=== PATIENT | male | born 1955 | race Caucasian/White ===

== ENCOUNTER 2023-01-03 09:23 | Outpatient (CLI) | payer MEDICARE | END 2023-01-03 09:24 | disposition home or self-care (01) | LOC: NAV RAD 09:23 | PROVIDERS: ATTEND Nurse Practitioner Family | DX: M51.34 Other intervertebral disc degeneration, thoracic region (principal); M25.561 Pain in right knee; M25.562 Pain in left knee; M25.78 Osteophyte, vertebrae; M53.84 Other specified dorsopathies, thoracic region; M25.861 Other specified joint disorders, right knee; M93.262 Osteochondritis dissecans, left knee; M17.0 Bilateral primary osteoarthritis of knee; M47.816 Spondylosis without myelopathy or radiculopathy, lumbar region; I70.8 Atherosclerosis of other arteries | CPT/HCPCS: 72072; 72100 ==

== ENCOUNTER 2023-11-21 14:19 | Emergency (ER) | payer MEDICARE ==
[2023-11-21 15:51] LABS: Anion Gap 14 mmol/L (10-20); BUN (Urea Nitrogen) 34 mg/dL (8.4-25.7); Calc. Creatinine Clearance 0 mL/min (70-130); Calcium 8.6 mg/dL (7.8-10.44); Carbon Dioxide 18 mmol/L (23-31); Chloride 108 mmol/L (98-107); Estimated GFR 28; Glucose 186 mg/dL (80-115); Potassium 5.2 mmol/L (3.5-5.1); Sodium 135 mmol/L (136-145)
== END 2023-11-21 16:30 | disposition home or self-care (01) ==
LOC: NAV ERS 14:19
DX: E87.5 Hyperkalemia (principal); N28.9 Disorder of kidney and ureter, unspecified; E11.9 Type 2 diabetes mellitus without complications; I10 Essential (primary) hypertension; F17.210 Nicotine dependence, cigarettes, uncomplicated; J44.89 Other specified chronic obstructive pulmonary disease; Z79.899 Other long term (current) drug therapy; Z79.84 Long term (current) use of oral hypoglycemic drugs
CPT/HCPCS: 80048; 99284